=== PATIENT | male | born 1990 | race Caucasian/White ===

== ENCOUNTER 2017-03-26 07:15 | Emergency (ER) | payer SELFPAY ==
[2017-03-26 07:24] VITALS: BP 132/80
[2017-03-26] MEDS ORDERED: PREDNISONE 20 MG TABLET PO ONE (07:44)
[2017-03-26] MEDS ORDERED: PSEUDOEPHEDRINE HCL 30 MG TABLET PO ONE (07:44)
--- NOTE | 2017-03-26 07:44 | ER Document Report ---
ED Respiratory Problem - General Mode of Arrival: Ambulatory Information source: Patient TRAVEL OUTSIDE OF THE [place] IN LAST 30 DAYS: No - HPI Patient complains to provider of: Cough Duration: Worse/persistent Initiating Event: Allergy - General Chief Complaint: Congestion Stated Complaint: COLD LIKE SYMPTOMS Time Seen by Provider: 03/26/17 07:39 Notes: Patient is a 26 year old male that presents to the emergency department today with complaints of a cough of a 3 day duration. Patient states 3 days ago he was mowing the grass and shortly after completion he began coughing. Patient states his cough has been consistent for 3 days producing a yellowish green mucus. Patient states he has "severe seasonal allergies" and that he is currently taking Claritin. Patient denies a history of asthma. (KARTHIK ECHEVERRIA) - Related Data Allergies/Adverse Reactions: No Known Allergies Allergy (Verified 03/26/17 07:22) Past Medical History - General Information source: Patient - Social History Smoking Status: Never Smoker Cigarette use (# per day): No Frequency of alcohol use: Social Drug Abuse: None Lives with: Spouse/Significant other Family History: Reviewed & Not Pertinent, Other - cystic fibrosis Patient has suicidal ideation: No Patient has homicidal ideation: No - Medical History Medical History: Negative Surgical Hx: Negative - Immunizations Hx Diphtheria, Pertussis, Tetanus Vaccination: Yes Review of Systems - Review of Systems Constitutional: No symptoms reported. denies: Fever EENT: See HPI, Nose congestion Cardiovascular: No symptoms reported Respiratory: See HPI, Cough Gastrointestinal: No symptoms reported Genitourinary: No symptoms reported Male Genitourinary: No symptoms reported Musculoskeletal: No symptoms reported Skin: No symptoms reported Hematologic/Lymphatic: No symptoms reported Neurological/Psychological: No symptoms reported -: Yes All other systems reviewed and negative Physical Exam - Vital signs Vitals: Temp Pulse Resp BP Pulse Ox 97.7 F 72 20 132/80 H 97 03/26/17 07:22 03/26/17 07:22 03/26/17 07:22 03/26/17 07:22 03/26/17 07:22 - Notes Notes: Physical Exam: General: Alert, appears well. HEENT: Normocephalic. Atraumatic. PERRL. Extraocular movements intact. Oropharynx clear. No posterior pharynx erythema or exudate. Sinus congestion. Neck: Supple. Non-tender. Respiratory: No respiratory distress. Clear and equal breath sounds bilaterally. Coughs after expiration. Cardiovascular: Regular rate and rhythm. Abdominal: Normal Inspection. Non-tender. No distension. Normal Bowel Sounds. Back: Non-tender. No deformity or step off. Extremities: Moves all four extremities. Upper extremities: Normal inspection. Normal ROM. Lower extremities: Normal inspection. No edema. Normal ROM. Neurological: Normal cognition. AAOx4. Normal speech. Psychological: Normal affect. Normal Mood. Skin: Warm. Dry. Normal color. (KARTHIK ECHEVERRIA) Course - Re-evaluation Re-evalutation: 03/26/17 Patient with likely allergies versus upper respiratory infection. He will be discharged home with a short course of steroids and is to start taking Zyrtec. Stable for discharge. (UIL TEMPLE) - Vital Signs Vital signs: Temp Pulse Resp BP Pulse Ox 97.7 F 72 20 132/80 H 97 03/26/17 07:22 03/26/17 07:22 03/26/17 07:22 03/26/17 07:22 03/26/17 07:22 Discharge - Discharge Clinical Impression: Allergic rhinitis Qualifiers: Chronicity: unspecified Allergic rhinitis trigger: unspecified Allergic rhinitis seasonality: seasonal Qualified Code(s): J30.2 - Other seasonal allergic rhinitis Condition: Stable Disposition: HOME, SELF-CARE Instructions: Hay Fever ([facility]) Prescriptions: Acetaminophen with Codeine [Tylenol with Codeine #3 Tablet] 1 tab PO QHS #10 tab Cetirizine HCl [Zyrtec 10 mg Tablet] 1 tab PO DAILY #30 tablet Prednisone [Deltasone 20 mg Tablet] 1 tab PO DAILY 3 Days Forms: Return to Work Scribe Attestation: 03/26/17 10:56 I personally performed the services described in the documentation, reviewed and edited the documentation which was dictated to the scribe in my presence, and it accurately records my words and actions. (ULI TEMPLE) Scribe Documentation - Scribe Written by Scribe:: Taurus Felix, [id number] 03/26/2017 acting as scribe for :: Ann
== END 2017-03-26 08:00 | disposition home or self-care (01) ==
LOC: ER 07:15
DX: J30.2 Other seasonal allergic rhinitis (principal); R05 Cough; Z79.899 Other long term (current) drug therapy
CPT/HCPCS: 99283; J7512

== ENCOUNTER 2017-10-31 15:29 | Emergency (ER) | payer SELFPAY ==
[2017-10-31] MEDS ORDERED: IBUPROFEN 800 MG TABLET PO ONE (17:52)
--- NOTE | 2017-10-31 17:54 | ER Document Report ---
ED Medical Screen (RME) - General Chief Complaint: Flu Symptoms Stated Complaint: FLU SYMPTOMS Time Seen by Provider: 10/31/17 17:52 Mode of Arrival: Ambulatory Information source: Patient Notes: 7-year-old male presents to ED for cough cold congestion body aches since yesterday. He states his fever started today. He was seen in emergency room with fever of102.8. He was ordered flu strep chest x-ray and ibuprofen. His lungs are a little diminished. He does have a red tonsils but no extra exudate. I have greeted and performed a rapid initial assessment of this patient. A comprehensive ED assessment and evaluation of the patient, analysis of test results and completion of medical decision making process will be conducted by an additional ED providers. TRAVEL OUTSIDE OF THE [place] IN LAST 30 DAYS: No - Related Data Allergies/Adverse Reactions: No Known Allergies Allergy (Verified 10/31/17 15:31) Past Medical History Pulmonary Medical History: Denies: Hx Asthma Endocrine Medical History: Denies: Hx Diabetes Mellitus Type 2 Renal/ Medical History: Denies: Hx Peritoneal Dialysis - Immunizations Hx Diphtheria, Pertussis, Tetanus Vaccination: Yes Physical Exam - Vital signs Vitals: Temp Pulse Resp BP Pulse Ox 102.8 F H 105 H 18 108/93 H 96 10/31/17 15:39 10/31/17 15:39 10/31/17 15:39 10/31/17 15:39 10/31/17 15:39 Course - Vital Signs Vital signs: Temp Pulse Resp BP Pulse Ox 102.8 F H 105 H 18 108/93 H 96 10/31/17 15:39 10/31/17 15:39 10/31/17 15:39 10/31/17 15:39 10/31/17 15:39
[2017-10-31 18:18] LABS: A TYPE INFLUENZA AG NEGATIVE (NEGATIVE); B INFLUENZA AG NEGATIVE (NEGATIVE)
--- NOTE | 2017-10-31 18:19 | RADIOLOGY REPORT (SQ) ---
EXAM DESCRIPTION: CHEST PA/LAT COMPLETED DATE/TIME: 10/31/2017 6:10 pm REASON FOR STUDY: cough congestion fever COMPARISON: 2015. TECHNIQUE: Frontal and lateral radiographic views of the chest acquired. NUMBER OF VIEWS: Two view. LIMITATIONS: None. FINDINGS: LUNGS AND PLEURA: No opacities, masses or pneumothorax. No pleural effusion. MEDIASTINUM AND HILAR STRUCTURES: No masses or contour abnormalities. HEART AND VASCULAR STRUCTURES: Heart normal size. No evidence for failure. BONES: No acute findings. HARDWARE: None in the chest. OTHER: No other significant finding. IMPRESSION: NO SIGNIFICANT RADIOGRAPHIC FINDING IN THE CHEST. TECHNICAL DOCUMENTATION: JOB ID: [id number] [email or web address]- All Rights Reserved
[2017-10-31] MEDS ORDERED: PSEUDOEPHEDRINE HCL 30 MG TABLET PO ONE (19:31)
[2017-10-31] MEDS ORDERED: FLUTICASONE NASAL SPRAY 50 MCG/SPRY 120 SPRAY/16 GM NASL ONE (19:31)
[2017-10-31] MEDS ORDERED: GUAIFENESIN 600 MG TABLET.SA PO ONE (19:31)
[2017-10-31] MEDS ORDERED: LORATADINE 10 MG TABLET PO ONE (19:31)
--- NOTE | 2017-10-31 19:39 | ER Document Report ---
ED Flu Like - General Chief Complaint: Flu Symptoms Stated Complaint: FLU SYMPTOMS Time Seen by Provider: 10/31/17 17:52 Mode of Arrival: Ambulatory Information source: Patient Notes: 27-year-old male presented ED for cough cold congestion body aches since yesterday. He states he has had a fever started today. He came to the emergency room with a temperature 102.8 and was given a flu strep test and chest x-ray. He was also treated with ibuprofen. His lungs were clear but little diminished. TRAVEL OUTSIDE OF THE [place] IN LAST 30 DAYS: No - HPI Onset: Yesterday Timing/Duration: Worse Quality of pain: Achy, Sharp Severity: Moderate Pain Level: 4 CO exposure: No Associated symptoms: Body/muscle aches, Chills, Nonproductive cough, Fever, Rhinnorhea, Sinus pain/drainage, Sore throat Similar symptoms previously: No Recently seen / treated by doctor: No - Related Data Allergies/Adverse Reactions: No Known Allergies Allergy (Verified 10/31/17 15:31) Past Medical History - General Information source: Patient - Social History Smoking Status: Never Smoker Cigarette use (# per day): No Chew tobacco use (# tins/day): No Smoking Education Provided: No Frequency of alcohol use: Occasional Drug Abuse: None Occupation: [employer] Lives with: Family Family History: Reviewed & Not Pertinent, Other - cystic fibrosis Patient has suicidal ideation: No Patient has homicidal ideation: No - Past Medical History Cardiac Medical History: Reports: None Pulmonary Medical History: Reports: None EENT Medical History: Reports: None Neurological Medical History: Reports: None Endocrine Medical History: Reports: None Renal/ Medical History: Reports: None Malignancy Medical History: Reports None GI Medical History: Reports: None Musculoskeltal Medical History: Reports None Skin Medical History: Reports None Psychiatric Medical History: Reports: None Traumatic Medical History: Reports: None Infectious Medical History: Reports: None Surgical Hx: Negative Past Surgical History: Reports: None - Immunizations Immunizations up to date: Yes Hx Diphtheria, Pertussis, Tetanus Vaccination: Yes Review of Systems - Review of Systems Constitutional: Chills, Fever, Recent illness EENT: Nose congestion, Nose discharge, Sinus discharge, Throat pain Cardiovascular: No symptoms reported Respiratory: Cough Gastrointestinal: No symptoms reported Genitourinary: No symptoms reported Male Genitourinary: No symptoms reported Musculoskeletal: Muscle pain, Muscle stiffness Skin: No symptoms reported Hematologic/Lymphatic: No symptoms reported Neurological/Psychological: No symptoms reported -: Yes All other systems reviewed and negative Physical Exam - Vital signs Vitals: Temp Pulse Resp BP Pulse Ox 102.8 F H 105 H 18 108/93 H 96 10/31/17 15:39 10/31/17 15:39 10/31/17 15:39 10/31/17 15:39 10/31/17 15:39 Interpretation: Normal - General General appearance: Appears well, Alert - HEENT Head: Normocephalic, Atraumatic Eyes: Normal Pupils: PERRL Ears: Normal External canal: Normal Tympanic membrane: Normal Sinus: Normal Nasal: Purulent discharge, Swelling Mouth/Lips: Normal Mucous membranes: Normal Pharynx: Erythema, Post nasal drainage, Tonsillar hypertrophy. No: Exudate, Peritonsillar abscess, Retropharyngeal abscess, Potential airway comprom. Neck: Normal - Respiratory Respiratory status: No respiratory distress Chest status: Nontender Breath sounds: Nonproductive cough Chest palpation: Normal - Cardiovascular Rhythm: Regular Heart sounds: Normal auscultation Murmur: No - Abdominal Inspection: Normal Distension: No distension Bowel sounds: Normal Tenderness: Nontender Organomegaly: No organomegaly - Back Back: Normal, Nontender - Extremities General upper extremity: Normal inspection, Nontender, Normal color, Normal ROM , Normal temperature General lower extremity: Normal inspection, Nontender, Normal color, Normal ROM , Normal temperature, Normal weight bearing. No: Shakila's sign - Neurological Neuro grossly intact: Yes Cognition: Normal Orientation: AAOx4 [place] Coma Scale Eye Opening: Spontaneous [place] Coma Scale Verbal: Oriented [place] Coma Scale Motor: Obeys Commands Finn Coma Scale Total: 15 Speech: Normal Motor strength normal: LUE, RUE, LLE, RLE Sensory: Normal - Psychological Associated symptoms: Normal affect, Normal mood - Skin Skin Temperature: Warm Skin Moisture: Dry Skin Color: Normal Course - Re-evaluation Re-evalutation: 11/01/17 01:35 Patient is clear treated with Claritin and Sudafed Mucinex and Sudafed and ibuprofen for his cough cold congestion. Due to his symptoms he was also prescribed Tamiflu and instructed to follow-up with his primary doctor. His flu test did come back negative but due to his symptoms he was treated anyway. - Vital Signs Vital signs: Temp Pulse Resp BP Pulse Ox 99.1 F 99 18 109/80 98 10/31/17 19:52 10/31/17 19:52 10/31/17 19:52 10/31/17 19:52 10/31/17 19:52 Discharge - Discharge Clinical Impression: Flu-like symptoms Condition: Stable Disposition: HOME, SELF-CARE Instructions: Family Physicians / Practices Additional Instructions: UPPER RESPIRATORY ILLNESS: You have a viral infection of the respiratory passages -- a "cold." This common infection causes nasal congestion, drainage, and often sore throat and cough. It is highly contagious. The disease usually lasts about 10 to 14 days. There is no "cure" for the viral infection -- it must run its course. If there is a complication, such as bacterial infection in the nose, sinuses, middle ear, or bronchial tubes, antibiotics may be required. The antibiotics won't affect the virus. Drink plenty of fluids. A humidifier may help. An expectorant medication or decongestant may make you more comfortable. Use acetaminophen or ibuprofen for fever or aches. See the doctor if fever persists over two days, if there is any significant worsening of your symptoms, or if you simply fail to improve as expected. You have flulike symptoms with your flu test came back negative. This test is not 100% accurate. I am going to give you prescription for Tamiflu for your symptoms. You can also take stqr-[id number] upper respiratory infection medicine such as Claritin and Sudafed Mucinex ibuprofen and Flonase. These are all pzup-xsj-jntrzrx. DECONGESTANT MEDICATION: A decongestant medicine has been suggest. Often this medicine is combined in the same tablet with an antihistamine or expectorant. This type of medicine is helpful in treating a bad cold or sinus condition, as well as in treatment of the nasal congestion of hay fever. It is not of much benefit for lung infections. Decongestant medicines are related to stimulants. They can cause an increase in blood pressure and heart rate. Persons with heart disease and high blood pressure should not take decongestants without discussing this with the physician. If you develop palpitations, chest pain, headache, or tremors, stop the medicine and consult your physician. COUGH-SUPPRESSANT & EXPECTORANT MEDICATION: You are to use a cough medication as needed for relief of symptoms. This medicine is a combination of an expectorant (to make the mucous thinner and more easily "coughed up") and a cough suppressant (to reduce the frequency of coughing). The cough-suppressant medicine is related to narcotics. You may experience mild nausea and sleepiness. Some patients who are very sensitive to narcotics may have stomach pain from this medicine. Taking the medicine with food reduces these side effects. Do not drive or work with machinery until you know how this medicine affects you. The expectorant should have no side effects. Iodine-containing expectorants (such as organidin) should not be taken by persons with active thyroid disease unless approved by your doctor. Call the doctor if you develop shortness of breath, hives, rash, itching, lightheadedness, or severe nausea and vomiting. USE OF ACETAMINOPHEN (Tylenol): Acetaminophen may be taken for pain relief or fever control. It's much safer than aspirin, offering a wider range of "safe" dosages. It is safe during . Some brand names are Tylenol, Panadol, Datril, Anacin 3, Tempra, and Liquiprin. Acetaminophen can be repeated every four hours. The following are maximum recommended dosages: >89 pounds or adults 650 mg to 900 mg Acetaminophen can be repeated every four hours. Maximum dose not to exceed 4000 mg a day. FOLLOW-UP CARE: If you have been referred to a physician for follow-up care, call the physician s office for an appointment as you were instructed or within the next two days. If you experience worsening or a significant change in your symptoms, notify the physician immediately or return to the Emergency Department at any time for re-evaluation. Prescriptions: Oseltamivir Phosphate [Tamiflu 75 mg Capsule] 75 mg PO BID #10 capsule Forms: Return to Work
[2017-10-31 19:54] VITALS: BP 109/80
== END 2017-10-31 19:52 | disposition home or self-care (01) ==
LOC: ER 15:29
DX: R05 Cough (principal); M79.1 Myalgia; R50.9 Fever, unspecified
CPT/HCPCS: 71046; 87070; 87804; 87880; 99283

== ENCOUNTER 2018-03-08 09:08 | Emergency (ER) | payer SELFPAY ==
--- NOTE | 2018-03-08 09:52 | ER Document Report ---
ED Medical Screen (RME) - General Mode of Arrival: Ambulatory Information source: Patient TRAVEL OUTSIDE OF THE [place] IN LAST 30 DAYS: No <KARTHIK ECHEVERRIA - Last Filed: 03/08/18 10:59> <SELENE COURTNEY - Last Filed: 03/08/18 21:45> - General Chief Complaint: Syncope Stated Complaint: HAND TINGLING, DIZZY Time Seen by Provider: 03/08/18 09:35 Notes: Patient is 27 year old male that presents to the emergency department today with complaints of syncope that occurred last night at work. Patient states prior to passing out he developed a tingling sensation in his fingers, lightheadedness, blurry vision, and a wave of heat. Patient states he has felt "off" for the last few weeks including a 5-7 pound weight loss over the last 2 weeks. Patient complains of night sweats as well. Patient denies chest pain, long trips, or prolonged incarceration. I have greeted and performed a rapid initial assessment of this patient. A comprehensive ED assessment and evaluation of the patient, analysis of test results, and completion of the medical decision making process will be conducted by additional ED providers. Review of systems: Constitutional: Night sweats. EENT: Blurry vision. Cardiovascular: Syncope. Lightheadedness. Denies chest pain. Respiratory: No symptoms reported Gastrointestinal: No symptoms reported Genitourinary: No symptoms reported Musculoskeletal: No symptoms reported Skin: No symptoms reported Hematologic/Lymphatic: No symptoms reported Neurological/Psychological: No symptoms reported Yes All other systems reviewed and negative Physical Exam: General: Alert, appears well. HEENT: Normocephalic. Atraumatic. PERRLA. Extraocular movements intact. Oropharynx clear. Neck: Supple. Cardiovascular: Normal rate and rhythm. Respiratory: No respiratory distress. Clear and equal breath sounds bilaterally. Abdominal: Normal Inspection. No distension. Extremities: Moves all four extremities. Neurological: Normal cognition. AAOx4. Normal speech. Psychological: Normal affect. Normal Mood. Skin: Warm. Dry. Normal color. (KARTHIK ECHEVERRIA) - Related Data Allergies/Adverse Reactions: No Known Allergies Allergy (Verified 03/08/18 09:09) Past Medical History - Social History Cigarette use (# per day): Yes Chew tobacco use (# tins/day): Yes Frequency of alcohol use: Occasional Drug Abuse: None Pulmonary Medical History: Denies: Hx Asthma Endocrine Medical History: Denies: Hx Diabetes Mellitus Type 2 Renal/ Medical History: Denies: Hx Peritoneal Dialysis - Immunizations Immunizations up to date: Yes Hx Diphtheria, Pertussis, Tetanus Vaccination: Yes <KARTHIK ECHEVERRIA - Last Filed: 03/08/18 10:59> - Vital signs Vitals: Temp Pulse Resp BP Pulse Ox 98.9 F 74 18 122/62 98 03/08/18 09:11 03/08/18 09:11 03/08/18 09:11 03/08/18 09:11 03/08/18 09:11 Course - Laboratory Result Diagrams: 03/08/18 09:34 03/08/18 09:34 <KARTHIK ECHEVERRIA - Last Filed: 03/08/18 10:59> - Laboratory Result Diagrams: 03/08/18 09:34 03/08/18 09:34 <SELENE COURTNEY - Last Filed: 03/08/18 21:45> - Vital Signs Vital signs: Temp Pulse Resp BP Pulse Ox 98.0 F 62 19 131/67 H 98 03/08/18 12:17 03/08/18 10:29 03/08/18 12:01 03/08/18 12:01 03/08/18 12:01 - Laboratory Laboratory results interpreted by me: 03/08/18 03/08/18 09:34 09:34 Hgb 12.8 L RDW 14.2 H Total Bilirubin 0.1 L Creatine Kinase 32 L Albumin 3.3 L Doctor's Discharge <KARTHIK ECHEVERRIA - Last Filed: 03/08/18 10:59> <SELENE COURTNEY - Last Filed: 03/08/18 21:45> - Discharge Clinical Impression: Episode of syncope Condition: Good Disposition: HOME, SELF-CARE Instructions: Syncopal Episode ([facility]) Additional Instructions: Schedule appointment with a gauge maker apprentice See [facility] for routine care Return to the emergency room for any worsening of the symptoms Forms: Return to Work Referrals: PABLITO WEAVER MD [ACTIVE STAFF] - Follow up as needed
[2018-03-08 10:08] LABS: ABSOLUTE BASOPHILS # (AUTO) 0.1 10^3/uL (0.0-0.2); ABSOLUTE EOSINOPHILS # (AUTO) 0.4 10^3/uL (0.0-0.6); ABSOLUTE LYMPHOCYTES (AUTO) 1.3 10^3/uL (0.5-4.7); ABSOLUTE MONOCYTES (AUTO) 0.5 10^3/uL (0.1-1.4); ABSOLUTE NEUT (AUTO) 7.2 10^3/uL (1.7-8.2); BASOPHILS % (AUTO) 0.9 % (0-2); EOSINOPHILS % (AUTO) 4.6 % (0-6); HEMATOCRIT 38.9 % (37.9-51.0); HEMOGLOBIN 12.8 g/dL (13.5-17.0); LYMPHOCYTES % (AUTO) 14.2 % (13-45); MEAN CORPUSCULAR VOLUME 82 fl (80-97); MONOCYTES % (AUTO) 4.9 % (3-13); PLATELET COUNT 333 10^3/uL (150-450); RED BLOOD COUNT 4.76 10^6/uL (4.35-5.55); RED CELL DISTRIBUTION WIDTH 14.2 % (11.5-14.0); SEGMENTED NEUTROPHILS % (AUTO) 75.4 % (42-78); TOTAL CELLS COUNTED % (AUTO) 100 %; WHITE BLOOD COUNT 9.5 10^3/uL (4.0-10.5)
[2018-03-08 10:14] LABS: APPEARANCE,URINE CLEAR; BILIRUBIN,URINE NEGATIVE (NEGATIVE); COLOR,URINE YELLOW; GLUCOSE, URINE NEGATIVE (NEGATIVE); KETONES,URINE NEGATIVE (NEGATIVE); LEUKOCYTE ESTERASE,URINE NEGATIVE (NEGATIVE); NITRITE,URINE NEGATIVE (NEGATIVE); PROTEIN,URINE NEGATIVE (NEGATIVE); URINE SPECIFIC GRAVITY 1.023; UROBILINOGEN,URINE NEGATIVE mg/dL (<2.0)
--- NOTE | 2018-03-08 10:24 | RADIOLOGY REPORT (SQ) ---
EXAM DESCRIPTION: CHEST 2 VIEWS COMPLETED DATE/TIME: 03/08/2018 10:14 am REASON FOR STUDY: night sweats, weight loss COMPARISON: 10/31/2017. EXAM PARAMETERS: NUMBER OF VIEWS: two views TECHNIQUE: Digital Frontal and Lateral radiographic views of the chest acquired. RADIATION DOSE: NA LIMITATIONS: none FINDINGS: LUNGS AND PLEURA: No opacities, masses or pneumothorax. No pleural effusion. MEDIASTINUM AND HILAR STRUCTURES: No masses or contour abnormalities. HEART AND VASCULAR STRUCTURES: Heart normal size. No evidence for failure. BONES: No acute findings. HARDWARE: None in the chest. OTHER: No other significant finding. IMPRESSION: NO ACUTE RADIOGRAPHIC FINDING IN THE CHEST. TECHNICAL DOCUMENTATION: JOB ID: [id number]- All Rights Reserved Reading location - IP/workstation name: [email or web address]
[2018-03-08 10:40] LABS: CREATINE KINASE MB 0.58 ng/mL (<4.55)
[2018-03-08 10:42] LABS: TROPONIN I < 0.012 ng/mL
[2018-03-08 10:44] LABS: FREE T3 4.51 pg/mL (2.77-5.27); FREE T4 (FREE THYROXINE) 1.21 ng/dL (0.78-2.19)
[2018-03-08 10:48] LABS: ALANINE AMINOTRANSFERASE 31 U/L (21-72); ALBUMIN 3.3 g/dL (3.5-5.0); ALKALINE PHOSPHATASE 50 U/L (38-126); ANION GAP 9 (5-19); ASPARTATE AMINO TRANSFERASE 25 U/L (17-59); BILIRUBIN,DIRECT 0.1 mg/dL (0.0-0.4); BILIRUBIN,TOTAL 0.1 mg/dL (0.2-1.3); BLOOD UREA NITROGEN 12 mg/dL (7-20); CALCIUM 8.5 mg/dL (8.4-10.2); CARBON DIOXIDE 27 mmol/L (22-30); CHLORIDE 106 mmol/L (98-107); CREATINE KINASE 32 U/L (55-170); GLUCOSE 100 mg/dL (75-110); POTASSIUM 4.2 mmol/L (3.6-5.0); SODIUM 141.5 mmol/L (137-145); TOTAL PROTEIN 6.4 g/dL (6.3-8.2)
[2018-03-08 10:57] LABS: THYROID STIMULATING HORMONE 1.23 uIU/mL (0.47-4.68)
[2018-03-08 11:05] LABS: URINE AMPHETAMINES SCREEN NEGATIVE; URINE BARBITURATES SCREEN NEGATIVE; URINE BENZODIAZEPINES SCREEN NEGATIVE; URINE COCAINE SCREEN NEGATIVE; URINE MARIJUANA (THC) SCREEN UNCONFIRMED POSITIVE; URINE METHADONE SCREEN NEGATIVE; URINE PHENCYCLIDINE SCREEN NEGATIVE
--- NOTE | 2018-03-08 11:41 | EKG REPORT ---
SEVERITY:- NORMAL ECG - SINUS RHYTHM : Confirmed by: Christine Cornelius MD 08-Mar-2018 11:40:53
--- NOTE | 2018-03-08 12:28 | ER Document Report ---
ED Syncope and Near Syncope - General Chief Complaint: Syncope Stated Complaint: HAND TINGLING, DIZZY Time Seen by Provider: 03/08/18 09:35 Mode of Arrival: Ambulatory Information source: Patient Notes: 27-year-old male had an episode of syncope last night when he was at work. He did not feel prior palpitations. He did got dizzy and felt hot at the time. He also complains of a 5-7 pound weight loss. No history of HIV or travel outside the [place]. No vomiting or diarrhea. No chest pain shortness of breath or abdominal pain. TRAVEL OUTSIDE OF THE [place] IN LAST 30 DAYS: No - Related Data Allergies/Adverse Reactions: No Known Allergies Allergy (Verified 03/08/18 09:09) Past Medical History - General Information source: Patient - Social History Smoking Status: Current Some Day Smoker Cigarette use (# per day): Yes Chew tobacco use (# tins/day): Yes Frequency of alcohol use: Occasional Drug Abuse: None Occupation: returant Family History: Reviewed & Not Pertinent, Other - cystic fibrosis Patient has suicidal ideation: No Patient has homicidal ideation: No - Medical History Medical History: Negative Renal/ Medical History: Denies: Hx Peritoneal Dialysis Surgical Hx: Negative - Immunizations Immunizations up to date: Yes Hx Diphtheria, Pertussis, Tetanus Vaccination: Yes Review of Systems - Review of Systems Constitutional: See HPI EENT: No symptoms reported Cardiovascular: No symptoms reported Respiratory: No symptoms reported Gastrointestinal: No symptoms reported Genitourinary: No symptoms reported Male Genitourinary: No symptoms reported Musculoskeletal: No symptoms reported Skin: No symptoms reported Hematologic/Lymphatic: No symptoms reported Neurological/Psychological: See HPI Physical Exam - Vital signs Vitals: Temp Pulse Resp BP Pulse Ox 98.9 F 74 18 122/62 98 03/08/18 09:11 03/08/18 09:11 03/08/18 09:11 03/08/18 09:11 03/08/18 09:11 Interpretation: Normal - General General appearance: Appears well, Alert In distress: None - HEENT Head: Normocephalic, Atraumatic Eyes: Normal Conjunctiva: Normal Extraocular movements intact: Yes Pupils: PERRL Tympanic membrane: Normal Mucous membranes: Normal Pharynx: Normal Neck: Supple. No: Lymphadenopathy - Respiratory Respiratory status: No respiratory distress Chest status: Nontender Breath sounds: Normal Chest palpation: Normal - Cardiovascular Rhythm: Regular Heart sounds: Normal auscultation Murmur: No - Abdominal Inspection: Normal Distension: No distension Bowel sounds: Normal Tenderness: Nontender. No: Tender Organomegaly: No organomegaly - Back Back: Normal, Nontender. No: CVA tenderness - Extremities General upper extremity: Normal inspection, Nontender, Normal color, Normal ROM , Normal temperature General lower extremity: Normal inspection, Nontender, Normal color, Normal ROM , Normal temperature, Normal weight bearing. No: Shakila's sign - Neurological Neuro grossly intact: Yes Cognition: Normal Orientation: AAOx4 Finn Coma Scale Eye Opening: Spontaneous Finn Coma Scale Verbal: Oriented [place] Coma Scale Motor: Obeys Commands [place] Coma Scale Total: 15 Speech: Normal Motor strength normal: LUE, RUE, LLE, RLE Sensory: Normal - Psychological Associated symptoms: Normal affect, Normal mood - Skin Skin Temperature: Warm Skin Moisture: Dry Skin Color: Normal Skin irregularity: negative: Rash Course - Re-evaluation Re-evalutation: 03/08/[address] Ascencio, the workup has been negative. I advised the patient about the urine drug screen was positive for opiates. He states he no longer does heroin that was several years ago. He states he took some cough syrup with opiate and it because he had a cough the other night or 3 days ago. He has no chest pain or shortness of breath. No symptoms of dizziness today at all. I will refer him to cardiology for event monitor. - Vital Signs Vital signs: Temp Pulse Resp BP Pulse Ox 98.0 F 62 19 131/67 H 98 03/08/18 12:17 03/08/18 10:29 03/08/18 12:01 03/08/18 12:01 03/08/18 12:01 - Laboratory Result Diagrams: 03/08/18 09:34 03/08/18 09:34 Laboratory results interpreted by me: 03/08/18 03/08/18 09:34 09:34 Hgb 12.8 L RDW 14.2 H Total Bilirubin 0.1 L Creatine Kinase 32 L Albumin 3.3 L Discharge - Discharge Clinical Impression: Episode of syncope Qualifiers: Syncope type: unspecified Qualified Code(s): R55 - Syncope and collapse Condition: Good Disposition: HOME, SELF-CARE Instructions: Syncopal Episode ([facility]) Additional Instructions: Schedule appointment with a customer counter representative [facility] Return to the emergency room for any worsening of the symptoms Forms: Return to Work Referrals: PABLITO WEAVER MD [ACTIVE STAFF] - Follow up as needed
[2018-03-08 12:29] VITALS: BP 131/67
== END 2018-03-08 12:33 | disposition home or self-care (01) ==
LOC: ER 09:08
DX: R55 Syncope and collapse (principal); R42 Dizziness and giddiness; R20.0 Anesthesia of skin; R00.2 Palpitations; F17.210 Nicotine dependence, cigarettes, uncomplicated; F11.90 Opioid use, unspecified, uncomplicated
CPT/HCPCS: 36415; 71046; 80053; 80307; 81001; 82550; 82553; 84439; 84443; 84481; 84484; 85025; 93005; 93010; 99284